=== PATIENT | female | born 1960 | race African-American/Black ===

== ENCOUNTER 2016-09-11 14:02 | Observation (INO) | payer OTHER ==
[~2016-09-11] VITALS: Ht 168.9 cm; Wt 122.6 kg
[~2016-09-11 14:02] MED LIST: ADULT LOW DOSE81 M1 PO; AGGRENOX1 CAPSULE PO; ALPRAZOLAM0.25 MG PO; LIPITOR10 MG PO; NEURONTIN600 M1 PO; NICOTINE PATCH1 EAC2 TD; Neurontin PO; PLAVIX75 MG PO; PREDNISONE50 MG PO; SSD25GM TP; TRAMADOL HCL50 MG PO; ULTRAM50 MG PO; VENTOLIN HFA18 GM IH; ZITHROMAX Z-PA250 MG PO
[2016-09-11 14:27] LABS: HEMATOCRIT 40.6 % (36.0-46.0); MCH 30.5 PG (29.0-34.0); MCV 92.3 FL (83-99); MEAN PLAT.VOLUME 9.8 uM^3 (9.5-12.4); PLATELET COUNT 301 K/uL (156-360); RBC DIS.WIDTH-SD 46.1 % (39-53); WHITE BLOOD COUNT 6.9 K/uL (4.1-10.2)
[2016-09-11 14:39] LABS: CHLORIDE 110 mEq/L (99-109); POTASSIUM 3.8 mEq/L (3.7-5.4); SODIUM 142 mEq/L (136-147)
[2016-09-11 14:40] LABS: GLUCOSE 100 mg/dL (70-99)
[2016-09-11 14:42] LABS: ANION GAP 13 MEQ/L (2-14)
[2016-09-11 14:44] LABS: GFR ESTIMATE (CALCULATED) > 59 mL/min/
[2016-09-11 14:45] LABS: UREA NITROGEN (BUN) 7 mg/dL (9-23)
[2016-09-11 14:52] LABS: TROP-I INTERPRETATION NEGATIVE; TROPONIN-I < 0.01 ng/mL (0.0-0.30)
[2016-09-11] MEDS ORDERED: LIPITOR10 MG PO (16:37)
[2016-09-11] MEDS ORDERED: PREDNISONE50 MG PO (16:38)
[2016-09-11] MEDS ORDERED: ZOLOFT25 MG PO (16:41)
[2016-09-11] MEDS ORDERED: PLAVIX75 MG PO (16:42)
[2016-09-11] MEDS ORDERED: PROAIR HFA8.5 GM IH (16:42)
[2016-09-11] MEDS ORDERED: LASIX20 MG PO (16:43)
[2016-09-11] MEDS ORDERED: ADVAIR 250/501 DISK IH (16:43)
[2016-09-11] MEDS ORDERED: GUMMI BEAR MUL1 EACH PO (16:44)
[2016-09-11] MEDS ORDERED: LO-DOSE ASPIRIN81 M1 PO (16:45)
[2016-09-11] MEDS ORDERED: NEURONTIN600 MG PO (16:45)
[2016-09-11] MEDS ORDERED: LYRICA50 MG PO (16:45)
[2016-09-11] MEDS ORDERED: CHOLESTYRAMINE P4 GM PO (16:46)
[2016-09-11 20:50] VITALS: BP 136/77
[2016-09-11 20:50] LABS: CREATINE KINASE 88 IU/L (1-294); TOTAL CK 88 IU/L (1-294)
[2016-09-11 20:55] LABS: TROP-I INTERPRETATION NEGATIVE; TROPONIN-I < 0.01 ng/mL (0.0-0.30)
[2016-09-11 20:56] LABS: CK-MB 0.9 ng/mL (0.0-4.9)
[2016-09-12 00:21] VITALS: BP 101/53
[2016-09-12 03:31] LABS: TROP-I INTERPRETATION NEGATIVE; TROPONIN-I < 0.01 ng/mL (0.0-0.30)
[2016-09-12 04:22] VITALS: BP 107/59
[2016-09-12 06:26] LABS: HEMATOCRIT 38.2 % (36.0-46.0); MCH 30.3 PG (29.0-34.0); MCHC 31.7 G/DL (30.0-36.0); MCV 95.7 FL (83-99); MEAN PLAT.VOLUME 10.8 uM^3 (9.5-12.4); PLATELET COUNT 294 K/uL (156-360); RBC DIS.WIDTH-CV 14.3 % (11.8-14.6); RBC DIS.WIDTH-SD 50.3 % (39-53); RED BLOOD COUNT 3.99 M/uL (3.80-5.20); WHITE BLOOD COUNT 7.4 K/uL (4.1-10.2)
[2016-09-12 06:50] LABS: ALKALINE PHOSPHATASE 82 IU/L (3-129); ANION GAP 10 MEQ/L (2-14); CHLORIDE 109 MEQ/L (99-109); GFR ESTIMATE (CALCULATED) > 59 mL/min/; GLUCOSE 141 mg/dL (70-99); POTASSIUM 4.3 MEQ/L (3.7-5.4); SAMPLE HEMOLYSIS CHECK 0; SAMPLE ICTERIC CHECK 0; SAMPLE LIPEMIA CHECK 0; SODIUM 142 MEQ/L (136-147); TOTAL BILIRUBIN 0.3 MG/DL (0.0-1.0); UREA NITROGEN (BUN) 10 mg/dL (9-23)
[2016-09-12 08:11] VITALS: BP 108/53
[2016-09-12 12:18] VITALS: BP 135/63
== END 2016-09-12 14:08 | disposition home or self-care (01) ==
LOC: EME 14:02 → 5WEST 18:57 → EDOF 18:57 → 5WEST 20:23
PROVIDERS: Internal Medicine
DX: R07.89 Other chest pain (principal); R20.0 Anesthesia of skin; M62.81 Muscle weakness (generalized); M79.602 Pain in left arm; I10 Essential (primary) hypertension; J44.9 Chronic obstructive pulmonary disease, unspecified; M79.7 Fibromyalgia; M32.9 Systemic lupus erythematosus, unspecified; G62.9 Polyneuropathy, unspecified; J45.909 Unspecified asthma, uncomplicated; G43.909 Migraine, unspecified, not intractable, without status migrainosus; G47.30 Sleep apnea, unspecified; Z86.73 Personal history of transient ischemic attack (TIA), and cerebral infarction without residual deficits; F17.210 Nicotine dependence, cigarettes, uncomplicated; E78.5 Hyperlipidemia, unspecified; K58.9 Irritable bowel syndrome, unspecified; E66.01 Morbid (severe) obesity due to excess calories; Z68.41 Body mass index [BMI] 40.0-44.9, adult
CPT/HCPCS: 70450; 71020; 72125; 73030; 80048; 80053; 82550 91; 82553; 84484; 85027; 93005; 94640; 94640 76; 99202; 99281; 99285; G0378; J2270; J2405; J7512

== ENCOUNTER 2016-09-25 10:23 | Day surgery (SDC) | payer OTHER ==
[~2016-09-25] VITALS: Ht 168.9 cm; Wt 117.9 kg
[~2016-09-25 10:23] MED LIST changes: +ADVAIR 250/501 DISK IH; +CHOLESTYRAMINE P4 GM PO; +GUMMI BEAR MUL1 EACH PO; +LASIX20 MG PO; +LO-DOSE ASPIRIN81 M1 PO; +LYRICA50 MG PO; +NEURONTIN600 MG PO; +NEXIUM40 MG PO; +PROAIR HFA8.5 GM IH; +ZOLOFT25 MG PO
== END 2016-09-25 16:20 | disposition home or self-care (01) ==
LOC: CATH 10:23
DX: R07.9 Chest pain, unspecified (principal); R20.0 Anesthesia of skin; R06.09 Other forms of dyspnea; I25.10 Atherosclerotic heart disease of native coronary artery without angina pectoris; Z86.73 Personal history of transient ischemic attack (TIA), and cerebral infarction without residual deficits; I10 Essential (primary) hypertension; E66.01 Morbid (severe) obesity due to excess calories; F17.200 Nicotine dependence, unspecified, uncomplicated; I27.2 Other secondary pulmonary hypertension; Z79.82 Long term (current) use of aspirin; Z88.1 Allergy status to other antibiotic agents; Z91.013 Allergy to seafood
CPT/HCPCS: C1769; C1887; J1200; J1644; J2250; J2765; J2930; J3010; J7050

== ENCOUNTER → 2017-01-13 | Outpatient (CLI) | payer OTHER ==
[2017-01-13 15:15] LABS: EOSINOPHIL (%) 1.4 % (0-5); EOSINOPHIL COUNT 0.1 K/uL (0-0.3); HEMATOCRIT 42.6 % (36.0-46.0); IMMATURE GRANULOCYTE (%) 0.4 % (0.0-0.7); INSTRUMENT ABS NEUTROPHIL CT 5.1 K/uL; LYMPHOCYTE COUNT 2.3 K/uL (1.0-2.8); MCH 30.8 PG (29.0-34.0); MCHC 32.4 G/DL (30.0-36.0); MCV 95.1 FL (83-99); MEAN PLAT.VOLUME 10.6 uM^3 (9.5-12.4); MONOCYTE (%) 8.3 % (3-12); MONOCYTE COUNT 0.7 K/uL (0-0.8); NEUTROPHIL (%) 61.8 % (45-76); NEUTROPHIL COUNT 5.1 K/uL (1.8-6.4); PLATELET COUNT 273 K/uL (156-360); RBC DIS.WIDTH-SD 48.7 % (39-53); RED BLOOD COUNT 4.48 M/uL (3.80-5.20); WHITE BLOOD COUNT 8.3 K/uL (4.1-10.2)
[2017-01-13 15:26] LABS: PROTHROMBIN TIME 10.1 (9.2-11.2); PTT 27.1 (25-32)
== END | disposition home or self-care (01) ==
LOC: AMB 13:31
PROVIDERS: Internal Medicine Pulmonary Disease
PROC: 0B9D8ZX Drainage of Right Middle Lung Lobe, Via Natural or Artificial Opening Endoscopic, Diagnostic (ICD-10-PCS; principal; 2017-01-13)
DX: J98.11 Atelectasis (principal); J44.9 Chronic obstructive pulmonary disease, unspecified; M32.9 Systemic lupus erythematosus, unspecified; F17.210 Nicotine dependence, cigarettes, uncomplicated; Z79.82 Long term (current) use of aspirin; Z79.02 Long term (current) use of antithrombotics/antiplatelets; Z79.899 Other long term (current) drug therapy; G47.33 Obstructive sleep apnea (adult) (pediatric); G62.9 Polyneuropathy, unspecified
CPT/HCPCS: 85025; 85610; 85730; 87070; 87116; 87205; 87206; 88108; J0461; J2175; J2250; J2310; J2550; J3010

== ENCOUNTER 2017-02-10 12:34 | Emergency (ER) | payer OTHER ==
[~2017-02-10] VITALS: Ht 167.6 cm; Wt 117.1 kg
[2017-02-10 14:48] LABS: HEMATOCRIT 42.4 % (36.0-46.0); MCH 29.9 PG (29.0-34.0); MCHC 31.8 G/DL (30.0-36.0); MEAN PLAT.VOLUME 10.3 uM^3 (9.5-12.4); PLATELET COUNT 260 K/uL (156-360); RBC DIS.WIDTH-CV 13.9 % (11.8-14.6); RBC DIS.WIDTH-SD 48.2 % (39-53); RED BLOOD COUNT 4.51 M/uL (3.80-5.20); WHITE BLOOD COUNT 7.1 K/uL (4.1-10.2)
[2017-02-10 14:58] LABS: CHLORIDE 107 mEq/L (99-109)
[2017-02-10 14:59] LABS: POTASSIUM 3.6 mEq/L (3.7-5.4); SODIUM 141 mEq/L (136-147)
[2017-02-10 15:00] LABS: GLUCOSE 126 mg/dL (70-99)
[2017-02-10 15:02] LABS: ANION GAP 10 MEQ/L (2-14)
[2017-02-10 15:04] LABS: GFR ESTIMATE (CALCULATED) > 59 mL/min/
[2017-02-10 15:05] LABS: UREA NITROGEN (BUN) 11 mg/dL (9-23)
[2017-02-10 17:10] VITALS: BP 113/77
== END 2017-02-10 17:10 | disposition home or self-care (01) ==
LOC: EME 12:34
DX: J98.01 Acute bronchospasm (principal); J06.9 Acute upper respiratory infection, unspecified; Z79.02 Long term (current) use of antithrombotics/antiplatelets; Z79.82 Long term (current) use of aspirin; F17.200 Nicotine dependence, unspecified, uncomplicated
CPT/HCPCS: 71020; 80048; 85027; 94664; 99281; 99284

== ENCOUNTER 2017-09-02 10:15 | Inpatient (IN) | payer OTHER ==
[~2017-09-02] VITALS: Ht 167.6 cm; Wt 117.0 kg
[2017-09-02 11:44] LABS: BASOPHIL (%) 0.2 % (0-1); EOSINOPHIL (%) 1.1 % (0-5); EOSINOPHIL COUNT 0.1 K/uL (0-0.3); HEMATOCRIT 42.5 % (36.0-46.0); IMMATURE GRANULOCYTE (%) 0.3 % (0.0-0.7); LYMPHOCYTE (%) 25.2 % (15-42); LYMPHOCYTE COUNT 1.7 K/uL (1.0-2.8); MCH 30.1 PG (29.0-34.0); MCHC 32.9 G/DL (30.0-36.0); MCV 91.4 FL (83-99); MONOCYTE (%) 13.3 % (3-12); MONOCYTE COUNT 0.9 K/uL (0-0.8); NEUTROPHIL (%) 59.9 % (45-76); NEUTROPHIL COUNT 3.9 K/uL (1.8-6.4); PLATELET COUNT 263 K/uL (156-360); RBC DIS.WIDTH-CV 13.6 % (11.8-14.6); RBC DIS.WIDTH-SD 46.3 % (39-53); RED BLOOD COUNT 4.65 M/uL (3.80-5.20); WHITE BLOOD COUNT 6.6 K/uL (4.1-10.2)
[2017-09-02 11:52] LABS: INTER. NORMALIZED RATIO 1.1
[2017-09-02 11:54] LABS: ALBUMIN 4.3 g/dL (3.2-4.8)
[2017-09-02 11:55] LABS: CHLORIDE 107 mEq/L (99-109); POTASSIUM 3.9 mEq/L (3.7-5.4); PTT 26.2 SEC (25-37); SODIUM 137 mEq/L (136-147)
[2017-09-02 11:57] LABS: GLUCOSE 111 mg/dL (70-99); TOTAL PROTEIN 8.1 g/dL (6.4-8.3)
[2017-09-02 11:59] LABS: TOTAL BILIRUBIN 0.6 mg/dL (0.0-1.0)
[2017-09-02 12:00] LABS: ALKALINE PHOSPHATASE 69 IU/L (3-129)
[2017-09-02 12:01] LABS: CREATININE 0.8 mg/dL (0.6-1.3); GFR ESTIMATE (CALCULATED) > 59 mL/min/
[2017-09-02 12:02] LABS: AST (GOT) 15 IU/L (2-34); UREA NITROGEN (BUN) 10 mg/dL (9-23)
[2017-09-02 12:03] LABS: ALT (GPT) 19 IU/L (3-49)
[2017-09-02 12:07] LABS: TROP-I INTERPRETATION NEGATIVE; TROPONIN-I < 0.01 ng/mL (0.0-0.30)
[2017-09-02 12:23] LABS: APPEARANCE CLOUDY ((CLEAR)); BILIRUBIN NEGATIVE; BLOOD NEGATIVE; COLOR YELLOW ((YELLOW)); GLUCOSE (STRIP) NEGATIVE; KETONES 20; LEUKOCYTES NEGATIVE; NITRITE NEGATIVE; PROTEIN (STRIP) 30; SPECIFIC GRAVITY 1.023 (1.000-1.030)
[2017-09-02 12:48] LABS: BACTERIA 2+ /HPF; EPITHELIAL CELLS 2+ /HPF; MUCUS NONE SEEN /LPF; RED BLOOD CELLS 0-5 /HPF (0-5); UCUL ADDED? YES; WHITE BLOOD CELLS 0-5 /HPF (0-5)
[2017-09-02 18:04] VITALS: BP 132/81
[2017-09-02 20:01] VITALS: BP 133/78
[2017-09-03 10:43] VITALS: BP 143/67
[2017-09-03 11:40] VITALS: BP 114/65
[2017-09-03 17:00] LABS: APPEARANCE CLEAR/COLORLESS; CSF TUBE NUMBER TUBE #4; RED CELL COUNT 0 /MM^3 (0-1)
[2017-09-03 17:01] LABS: CSF PROTEIN 106 mg/dL (15-45); WHITE CELL COUNT 173 /MM^3 (0-5)
[2017-09-03 17:02] LABS: CSF EOSINOPHILS 0 % (0-25); MONONUCLEAR WBC'S 100 % (50-90); POLYNUCLEAR WBC'S 0 % (0-3)
[2017-09-03 17:06] LABS: GLUCOSE, CSF 61 mg/dL (40-80)
[2017-09-03 17:16] VITALS: BP 168/91
[2017-09-03 20:00] VITALS: BP 158/70
[2017-09-04 01:08] VITALS: BP 123/65
[2017-09-04 04:45] VITALS: BP 142/90
[2017-09-04 09:50] VITALS: BP 156/76
[2017-09-04 14:01] LABS: HSV CSF Spec Source CSF (())
[2017-09-04 16:00] VITALS: BP 150/67
[2017-09-04 20:36] VITALS: BP 132/78
[2017-09-04 23:04] VITALS: BP 157/76
[2017-09-05 03:18] VITALS: BP 110/76
[2017-09-05 04:44] LABS: TROP-I INTERPRETATION NEGATIVE; TROPONIN-I < 0.01 ng/mL (0.0-0.30)
[2017-09-05 09:30] VITALS: BP 115/75
[2017-09-05 09:50] LABS: TROP-I INTERPRETATION NEGATIVE; TROPONIN-I < 0.01 ng/mL (0.0-0.30)
[2017-09-05 12:50] VITALS: BP 142/84
[2017-09-05 16:26] LABS: TROP-I INTERPRETATION NEGATIVE; TROPONIN-I < 0.01 ng/mL (0.0-0.30)
[2017-09-05 17:24] VITALS: BP 138/88
[2017-09-05 19:29] VITALS: BP 122/74
[2017-09-06 00:22] VITALS: BP 116/59
[2017-09-06 05:22] VITALS: BP 143/65
[2017-09-06 08:39] VITALS: BP 128/59
[2017-09-06] MEDS ORDERED: DECADRON2 MG PO (11:57)
[2017-09-06] MEDS ORDERED: OSELTAMIVIR PHO75 MG PO (11:57)
[2017-09-06 12:00] VITALS: BP 136/99
== END 2017-09-06 13:36 | disposition home or self-care (01) | DRG 866 ==
LOC: EME 10:15 → EDOF 13:48 → 5WEST 13:48 → EDOF 13:48 → ENRESERV 13:51 → 5WEST 17:30
PROVIDERS: Emergency Medicine; Physician Assistant; Specialist
DX: J10.81 Influenza due to other identified influenza virus with encephalopathy (principal); D68.59 Other primary thrombophilia; J98.11 Atelectasis; Z68.41 Body mass index [BMI] 40.0-44.9, adult; I69.359 Hemiplegia and hemiparesis following cerebral infarction affecting unspecified side; A85.8 Other specified viral encephalitis; I10 Essential (primary) hypertension; M79.7 Fibromyalgia; K21.9 Gastro-esophageal reflux disease without esophagitis; J44.9 Chronic obstructive pulmonary disease, unspecified; F17.210 Nicotine dependence, cigarettes, uncomplicated; E66.9 Obesity, unspecified; K58.9 Irritable bowel syndrome, unspecified; G62.9 Polyneuropathy, unspecified; B97.89 Other viral agents as the cause of diseases classified elsewhere; Z91.14 Patient's other noncompliance with medication regimen; Z79.51 Long term (current) use of inhaled steroids; Z88.1 Allergy status to other antibiotic agents; Z91.013 Allergy to seafood
CPT/HCPCS: 62270; 70450; 70551; 71045; 77003; 80053; 81003; 82140; 82945; 83605; 84157; 84484; 85025; 85610; 85730; 87070; 87086; 87116; 87205; 87206; 87502; 87529 90; 87899; 89051; 93005; 95819; 99281; 99285; G0378; J0133; J1100; J1170; J1650; J2060; J7030; J7050; J8540; S0028

== ENCOUNTER 2017-09-11 16:05 | Emergency (ER) | payer OTHER ==
[~2017-09-11] VITALS: Ht 167.6 cm; Wt 115.4 kg
[~2017-09-11 16:05] MED LIST changes: +DECADRON2 MG PO; +OSELTAMIVIR PHO75 MG PO
[2017-09-11 17:05] LABS: BASOPHIL (%) 0.6 % (0-1); BASOPHIL COUNT 0.1 K/uL (0-0.1); EOSINOPHIL (%) 1.5 % (0-5); EOSINOPHIL COUNT 0.1 K/uL (0-0.3); HEMATOCRIT 40.7 % (36.0-46.0); HEMOGLOBIN 13.1 G/DL (11.9-15.5); IMMATURE GRANULOCYTE (%) 0.4 % (0.0-0.7); LYMPHOCYTE (%) 33.9 % (15-42); MCH 30.7 PG (29.0-34.0); MCHC 32.2 G/DL (30.0-36.0); MCV 95.3 FL (83-99); MONOCYTE (%) 9.3 % (3-12); MONOCYTE COUNT 0.8 K/uL (0-0.8); NEUTROPHIL (%) 54.3 % (45-76); NEUTROPHIL COUNT 4.8 K/uL (1.8-6.4); PLATELET COUNT 308 K/uL (156-360); RBC DIS.WIDTH-CV 14.1 % (11.8-14.6); RBC DIS.WIDTH-SD 48.9 % (39-53); RED BLOOD COUNT 4.27 M/uL (3.80-5.20); WHITE BLOOD COUNT 8.9 K/uL (4.1-10.2)
[2017-09-11 17:14] LABS: ALBUMIN 3.6 g/dL (3.2-4.8); CHLORIDE 107 mEq/L (99-109); POTASSIUM 3.8 mEq/L (3.7-5.4); SODIUM 140 mEq/L (136-147)
[2017-09-11 17:16] LABS: GLUCOSE 122 mg/dL (70-99); TOTAL PROTEIN 6.8 g/dL (6.4-8.3)
[2017-09-11 17:18] LABS: TOTAL BILIRUBIN 0.2 mg/dL (0.0-1.0)
[2017-09-11 17:20] LABS: ALKALINE PHOSPHATASE 77 IU/L (3-129); CREATININE 0.7 mg/dL (0.6-1.3); GFR ESTIMATE (CALCULATED) > 59 mL/min/
[2017-09-11 17:21] LABS: AST (GOT) 9 IU/L (2-34); UREA NITROGEN (BUN) 14 mg/dL (9-23)
[2017-09-11 17:22] LABS: DIRECT BILIRUBIN 0.1 mg/dL (0.0-0.3)
[2017-09-11 17:23] LABS: ALT (GPT) 14 IU/L (3-49); LIPASE 53 U/L (1.0-51.0)
[2017-09-11 19:52] LABS: APPEARANCE SL.HAZY ((CLEAR)); BILIRUBIN NEGATIVE; BLOOD NEGATIVE; COLOR YELLOW ((YELLOW)); GLUCOSE (STRIP) NEGATIVE; KETONES NEGATIVE; LEUKOCYTES NEGATIVE; NITRITE NEGATIVE; PROTEIN (STRIP) NEGATIVE; SPECIFIC GRAVITY 1.024 (1.000-1.030); UROBILINOGEN 0.2 MG/DL (0.2-1.0)
[2017-09-11 19:56] LABS: BACTERIA 1+ /HPF; EPITHELIAL CELLS 1+ /HPF; MUCUS TRACE /LPF; RED BLOOD CELLS 0-5 /HPF (0-5); WHITE BLOOD CELLS 0-5 /HPF (0-5)
[2017-09-11] MEDS ORDERED: NAPROSYN500 MG PO (20:31)
[2017-09-11] MEDS ORDERED: ZOFRAN4 MG PO (20:31)
[2017-09-11] MEDS ORDERED: MECLIZINE HCL25 MG PO (20:31)
[2017-09-11 21:17] VITALS: BP 109/70
== END 2017-09-11 21:17 | disposition home or self-care (01) ==
LOC: EME 16:05
PROVIDERS: Physician Assistant
DX: A87.9 Viral meningitis, unspecified (principal); R51 Headache; M79.7 Fibromyalgia; M32.9 Systemic lupus erythematosus, unspecified; J44.9 Chronic obstructive pulmonary disease, unspecified; K21.9 Gastro-esophageal reflux disease without esophagitis; K58.0 Irritable bowel syndrome with diarrhea; F32.9 Major depressive disorder, single episode, unspecified; F17.200 Nicotine dependence, unspecified, uncomplicated; Z86.73 Personal history of transient ischemic attack (TIA), and cerebral infarction without residual deficits; Z88.1 Allergy status to other antibiotic agents; Z91.041 Radiographic dye allergy status
CPT/HCPCS: 70450; 80048; 80076; 81003; 82140; 83605; 83690; 85025; 87040; 93005; 99281; 99284; J1885; J2405; J3010; J7030